=== PATIENT | male | born 1980 | race African-American/Black ===

== ENCOUNTER 2018-12-06 10:32 | Emergency (ER) | payer OTHER ==
[~2018-12-06] VITALS: Ht 185.4 cm; Wt 113.3 kg
[2018-12-06] MEDS ORDERED: IBUPROFEN 800800 M1 PO (12:07)
[2018-12-06 12:20] VITALS: BP 139/80
== END 2018-12-06 12:22 | disposition home or self-care (01) ==
LOC: M.ERS 10:32
DX: S09.8XXA Other specified injuries of head, initial encounter (principal); F17.210 Nicotine dependence, cigarettes, uncomplicated; W22.8XXA Striking against or struck by other objects, initial encounter; Y93.89 Activity, other specified; Y92.89 Other specified places as the place of occurrence of the external cause; Y99.0 Civilian activity done for income or pay